=== PATIENT | female | born 1945 | race Caucasian/White ===

== ENCOUNTER 2016-06-22 15:20 | Inpatient (IN) | payer OTHER ==
[~2016-06-22] VITALS: Ht 162.6 cm; Wt 90.7 kg
[2016-06-22 15:42] VITALS: BP 159/79
[2016-06-22] MEDS ORDERED: METF500T2 PO (15:45)
--- NOTE | 2016-06-22 17:32 | NUR ---
PATIENT TAKEN TO BED #8
[2016-06-22] MEDS ORDERED: MORPHINE SULFATE 4 MG/ML SYR IVP ONE ×2 (17:45→20:50)
[2016-06-22] MEDS ORDERED: ONDANSETRON 4 MG/2 ML VIAL IVP ONE (17:45)
--- NOTE | 2016-06-22 18:00 | NUR ---
PATIENT PRESENTS TO ED C/O RIGHT SHOULDER TO ELBOW PAIN AND MOUTH PAIN FROM FALLING TODAY, PT DOES NOT REMEMBER FALLING; DENIES N/V/D; SKIN IS PINK/WARM/DRY; AAOX4 WITH EVEN AND STEADY GAIT; LUNGS CLEAR BL; HR EVEN AND REGULAR; PT DENIES ANY FEVER, CP, SOB, OR COUGH AT THIS TIME; PATIENT STATES PAIN OF 10/10 AT THIS TIME; VSS; PATIENT POSITIONED FOR COMFORT; HOB ELEVATED; BEDRAILS UP X2; BED DOWN. ER MD MADE AWARE OF PT STATUS.
[2016-06-22 18:13] LABS: HEMATOCRIT 38.2 % (36-48); HEMOGLOBIN 12.9 g/dL (12.0-16.0); MEAN CORPUSCULAR HEMOGLOBIN 27 pg (27-31); MEAN CORPUSCULAR HGB CONC 34 g/dL (33-37); MEAN CORPUSCULAR VOLUME 82 fL (80-94); PLATELET COUNT (AUTO) 291 K/uL (140-450); RED BLOOD CELL COUNT(AUTO) 4.68 MIL/uL (4.20-5.40); RED CELL DISTRIBUTION WIDTH 13.8 % (11.6-13.7); WHITE BLOOD COUNT (AUTO) 20.6 K/uL (4.8-10.8)
--- NOTE | 2016-06-22 18:21 | NUR ---
CORRECTION IV INSERTED ON LEFT HAND 22G
[2016-06-22 18:24] LABS: ANION GAP 9.5 (8-16); CALCIUM 9.1 mg/dL (8.5-10.1); CREATININE 0.9 mg/dL (0.6-1.3); POTASSIUM 3.5 mmol/L (3.5-5.1)
[2016-06-22 18:27] LABS: INR 1.2 (0.8-1.2); PARTIAL THROMBOPLASTIN TIME 23.4 secs (22-35.6); PROTHROMBIN TIME 11.1 secs (10.8-13.4)
[2016-06-22 18:29] LABS: BAND % (MANUAL) 8 % (0-8); LYMPHOCYTES % (MANUAL) 8 % (20-46); MONOCYTES % (MANUAL) 4 % (5-12); NEUTROPHILS % (MANUAL) 80 (43-65)
[2016-06-22 18:30] LABS: ALBUMIN 3.6 g/dL (3.4-5.0); PLATELET ESTIMATE ADEQUATE; TOTAL BILIRUBIN 0.4 mg/dL (0.0-1.0); TOTAL PROTEIN, SERUM 7.3 g/dL (6.4-8.2)
--- NOTE | 2016-06-22 19:30 | NUR ---
REPORT GIVEN TO EDGAR BENITEZ
[2016-06-22 19:52] LABS: LACTIC ACID 1.2 mmol/L (0.4-2.0)
[2016-06-22 20:09] LABS: APPEARANCE,URINE CLEAR (CLEAR); BILIRUBIN,URINE NEGATIVE (NEGATIVE); BLOOD, URINE TRACE-I (NEGATIVE); COLOR,URINE YELLOW (YELLOW); LEUKOCYTE ESTERASE ,URINE NEGATIVE (NEGATIVE); NITRITE, URINE NEGATIVE (NEGATIVE); PH,URINE 6.5 (5.0-9.0); PROTEIN,URINE 3+ (NEGATIVE); UGLUCOSE NEGATIVE (NEGATIVE); UROBILINOGEN,URINE 0.2 EU/dL (0.2 - 1)
[2016-06-22] MEDS ORDERED: LORazepam 2 MG/ML VIAL IVP PRN (20:15)
[2016-06-22] MEDS ORDERED: ONDANSETRON 4 MG/2 ML VIAL IVP PRN (20:15)
[2016-06-22] MEDS ORDERED: ACETAMINOPHEN 325 MG TAB PO PRN (20:15)
[2016-06-22 20:16] LABS: BACTERIA,URINE FEW /HPF (None Seen); MUCUS,URINE 4+ /LPF (None Seen); SQUAMOUS EPITHELIAL CELL,UR 0-3 /LPF (0-3 (FEW))
[2016-06-22] MEDS: HYDROCHLOROTHIAZIDE 25 MG TAB PO SCH (20:30)
--- NOTE | 2016-06-22 20:44 | NUR ---
Patient will be admitted to care of DR. KRUEGER. Admited to TELEMTRY. Will go to room 107A. Belongings list completed. Report to JERI HERNÁNDEZ.
--- NOTE | 2016-06-22 21:12 | NUR ---
RECEIVED FROM ER PER SHERIE AWAKE AND ALERT. DX. SP FALL VS SYNCOPE . A/O X 4. ROM X 4. VERBALIZES WELL. NO SOB. DENIES PAIN AT THIS TIME. ACCOMPANIED BY DAUGHTER/[place]. SPEAKS CITIZEN OF [place] ONLY. CALL LIGHT WITH IN REACH. CARE PLANS FOR THE NIGHT DISCUSSED WITH HER AND FAMILY. IVF SITE TO LEFT WRIST #22 INTACT AND NEW. GOOD BLOOD RETURN.
[2016-06-22 21:29] VITALS: BP 159/79
--- NOTE | 2016-06-22 22:21 | NUR ---
FAMILY MEMBERS TILL IN HERE AND ABLE TO SPEAK IN [place]. NO COMPLAINTS DONE. DAUGHTER REQUESTED TO STAY OVERNIGHT. NO COMPLAINTS OF PAIN DONE AT THIS TIME. CHARGE NURSE AND FLOOR NURSE INSPECTED SKIN. NOTED WITH BRUISE TO BILATERAL KNEES FROM S/P FALL INCIDENT AT HOME AND LOWER LEFT LIP BRUISE. RIGHT SHOULDER SLIGHTLY SWOLLEN. NO SOB. CALL LIGHT WITH IN REACH AND DAUGTHER STAYING OVER ORIENTED TO CALL LIGHT AND RAPID RESPONSE USE.
[2016-06-22] MEDS: MORPHINE SULFATE 2 MG/ML SYR IVP PRN (22:40)
[2016-06-22] MEDS: LISINOPRIL 10 MG TAB PO SCH (22:41)
--- NOTE | 2016-06-22 22:59 | NUR ---
PT. REQUESTED FOR PAIN RELIEVER RT RIGHT SHOULDER AND BILATERAL KNEE SUSTAINED FROM S/P FALL IS HURTING. MEDICATED WITH MORPHINE 2 MG IVP ORDERED. DAUGTHER AT BEDSIDE.
[2016-06-23 00:26] VITALS: BP 155/75
--- NOTE | 2016-06-23 00:47 | NUR ---
SLEEPING AT THI STIME. WOKE UP EASILY WHEN VITAL SIGNS TAKEN. ON FALL RISK. DAUGHTER AT BEDSIDE WATCHING OVER PT.
[2016-06-23] MEDS: MORPHINE SULFATE 2 MG/ML SYR IVP PRN ×3 (02:09→12:02)
--- NOTE | 2016-06-23 03:07 | NUR ---
PT. REQUESTED FOR MORPHINE IVP RT PAIN RIGHT SHOULDER. MEDICATED REDQUESTED. AWAKE AND ALERT. NO OTHER COMPLAINTS.
[2016-06-23 03:23] LABS: CREATINE KINASE MB 0.4 ng/mL (0-3.6)
[2016-06-23 04:46] VITALS: BP 152/70
--- NOTE | 2016-06-23 05:02 | NUR ---
AWAKE AT THIS TIME. WATCHING TV. NO COMPLAINTS AT THIS TIME. DAUGHTER WITH HER. PT. ABLE TO USE CALL LIGHT FOR HELP AND IF IN PAIN. TELEMETRY [id number]. A
[2016-06-23 07:00] LABS: HEMATOCRIT 34.7 % (36-48); HEMOGLOBIN 11.5 g/dL (12.0-16.0); MEAN CORPUSCULAR HEMOGLOBIN 27 pg (27-31); MEAN CORPUSCULAR HGB CONC 33 g/dL (33-37); MEAN CORPUSCULAR VOLUME 83 fL (80-94); PLATELET COUNT (AUTO) 282 K/uL (140-450); RED BLOOD CELL COUNT(AUTO) 4.18 MIL/uL (4.20-5.40); RED CELL DISTRIBUTION WIDTH 13.9 % (11.6-13.7); WHITE BLOOD COUNT (AUTO) 16.3 K/uL (4.8-10.8)
--- NOTE | 2016-06-23 07:14 | NUR ---
RECEIVED PT AWAKE AAOX4, WITH NO S/S OF RESPIRATORY DISTRESS. SKIN IS INTACT, WITH IV ACCESS AT LEFT HAND 22G ON SALINE LOCK PATENT AND INTACT. WITH SLING ON RIGHT ARM, COMPLAINED OF PAIN, WILL ADMINISTER PAIN MED. DISCUSSED PLAN OF CARE, INTERPRETED BY ROBBIE GARVIN AND DAUGHTER, PT VERBALIZED UNDERSTANDING. PT PLACED ON FALL PRECAUTION, CALL LIGHT WITHIN REACH, WILL CONTINUE TO MONITOR.
--- NOTE | 2016-06-23 07:15 | NUR ---
DR ORTIZ AT BEDSIDE
[2016-06-23 07:19] LABS: ANION GAP 8.4 (8-16); CALCIUM 8.5 mg/dL (8.5-10.1); CARBON DIOXIDE 32.3 mmol/L (21-32); CREATININE 0.9 mg/dL (0.6-1.3); POTASSIUM 3.7 mmol/L (3.5-5.1)
[2016-06-23 07:24] LABS: MAGNESIUM 1.7 mg/dL (1.8-2.4); PHOSPHORUS 4.4 mg/dL (2.5-4.9)
[2016-06-23 08:00] VITALS: BP 147/75
[2016-06-23] MEDS: HYDROCHLOROTHIAZIDE 25 MG TAB PO SCH (08:00)
--- NOTE | 2016-06-23 08:03 | NUR ---
DUE MEDS GIVEN, PT TOLERATED WELL. COMPLAINED OF PAIN, MORPHINE GIVEN IVP. WILL REASSESS
[2016-06-23] MEDS ORDERED: DEXTROSE 50% 50 ML SYR IVP PRN (08:15)
[2016-06-23] MEDS ORDERED: metFORMIN 500 MG TAB PO SCH (08:20)
[2016-06-23 08:27] LABS: BAND % (MANUAL) 5 % (0-8); LYMPHOCYTES % (MANUAL) 12 % (20-46); MONOCYTES % (MANUAL) 3 % (5-12); NEUTROPHILS % (MANUAL) 80 (43-65)
[2016-06-23] MEDS ORDERED: ATOR20TA PO (08:44)
[2016-06-23] MEDS ORDERED: PAX20 PO (08:44)
[2016-06-23] MEDS ORDERED: AMLO5TAB4 PO (08:44)
--- NOTE | 2016-06-23 08:49 | NUR ---
PT AMBULATING ALONG HALLWAYS WITH PHYSICAL THERAPISTS
--- NOTE | 2016-06-23 08:58 | NUR ---
PT SPO2 AFTER AMBULATING ST 88%. O2 APPLIED VIA NC AT 2LPM
[2016-06-23] MEDS ORDERED: METFORMIN HCL PO SCH (09:00)
--- NOTE | 2016-06-23 09:11 | NUR ---
PATIENT HAS BEEN SCREENED AND CATEGORIZED MODERATE NUTRITION RISK. PATIENT WILL BE SEEN WITHIN 3-5 DAYS OF ADMISSION. 06/25/16-06/27/[address]
--- NOTE | 2016-06-23 09:19 | NUR ---
PATOENT LEFT FOR CT ON A WHEELCHAIR. STABLE
--- NOTE | 2016-06-23 09:26 | NUR ---
PT BACK TO UNIT FROM CT
--- NOTE | 2016-06-23 11:10 | NUR ---
NOTIFIED DR Krishan KRUEGER RE: MAG LEVEL, WILL CARRY OUT NEW ORDERS
--- NOTE | 2016-06-23 11:19 | NUR ---
DR ORTIZ NOTIFIED OF CT RESULT, WILL COME TO SEE THE PATIENT
[2016-06-23] MEDS ORDERED: MAG SULF 2000 MG/WATER PREMIX 50 ML IV SCH ×2 (11:32→12:00)
[2016-06-23] MEDS: BLOOD GLUCOSE MONITORING 1 DEV DEV FS SCH ×3 (11:38→20:27)
[2016-06-23 11:40] LABS: CREATINE KINASE MB 0.6 ng/mL (0-3.6)
[2016-06-23] MEDS: INSULIN LISPRO SLIDING SCALE 100 UNITS/ML VIAL SUBQ PRN ×3 (11:57→20:27)
[2016-06-23 12:00] VITALS: BP 138/91
--- NOTE | 2016-06-23 13:10 | NUR ---
DR Manohar KRUEGER AT NURSES STATION
--- NOTE | 2016-06-23 15:05 | NUR ---
DR ORTIZ AT BEDSIDE, PT OK TO HAVE SURGERY. INFORMED CONSENT SIGNED AND AFFIXED IN CHART
[2016-06-23] MEDS: MORPHINE SULFATE 4 MG/ML SYR IVP PRN ×2 (15:17→22:51)
[2016-06-23 16:00] VITALS: BP 143/63
[2016-06-23] MEDS: metFORMIN 500 MG TAB PO SCH (17:04)
--- NOTE | 2016-06-23 17:15 | NUR ---
DUE MEDS GIVEN, PT TOLERATED WELL. WITH RELATIVES AT BEDSIDE. NO S/S OF DISTRESS, WILL CONTINUE TO MONITOR.
[2016-06-23] MEDS ORDERED: PIPER/TAZO 3.375GM/D5W PREMIX 50 ML IV SCH (18:00)
[2016-06-23] MEDS: HYDROcodone/APAP 5/325 MG 1 TAB TAB PO PRN (18:54)
--- NOTE | 2016-06-23 19:05 | NUR ---
RECEIVED REPORT FROM EDGAR GOSS AT BEDSIDE. INITIAL ASSESSMENT COMPLETED. PT AAOX4. PT AMBULATES. PT STABLE. PT HAS A SLING ON RIGHT ARM. PT HAS IV ON LEFT HAND 22 G SL. PT ON O2 2L NC. PT AWARE THAT SHE IS NPO AFTER MIDNIGHT. FAMILY AT BEDSIDE. ORIENTED PT TO ROOM AND SURROUNDINGS AND USE OF CALL LIGHT. EXPLAINED PLAN OF CARE TO PT AND SHE VERBALIZES UNDERSTANDING. WILL CONTINUE TO MONITOR PT.
--- NOTE | 2016-06-23 19:23 | NUR ---
ENDORSED PT TO EDGAR FLORES FOR CONTINUITY OF CARE IN STABLE CONDITION
[2016-06-23 20:00] VITALS: BP 149/65
[2016-06-23] MEDS: LISINOPRIL 10 MG TAB PO SCH (20:17)
--- NOTE | 2016-06-23 20:31 | NUR ---
PT TOLERATED 2100 MEDS WELL, WILL CONTINUE TO MONITOR PT. FAMILY AT BEDSIDE.
--- NOTE | 2016-06-23 21:50 | NUR ---
DR. ZAPATA IN TO SEE PT, WILL FOLLOW UP ON ORDERS.
[2016-06-23] MEDS ORDERED: cefTRIAXone 1,000 MG VIAL ONE (22:49)
--- NOTE | 2016-06-23 22:49 | NUR ---
PT COMPLAINING OF RIGHT SHOULDER PAIN 09/24. WILL MEDICATE ORDERED.
--- NOTE | 2016-06-23 23:00 | NUR ---
MEDICATION GIVEN ORDERED. WILL CONTINUE TO MONITOR PT.
[2016-06-24] VITALS (9 sets, daily range): BP systolic 116–146; BP diastolic 54–83
--- NOTE | 2016-06-24 01:05 | NUR ---
PT STABLE, PT SLEEPING AT THIS TIME. NO SIGNS OF DISTRESS NOTED. WILL CONTINUE TO MONITOR PT.
--- NOTE | 2016-06-24 03:43 | NUR ---
DISCONNECTED PT FROM IV SO SHE COULD AMBULATE TO THE RESTROOM. PT BACK IN BED NOW. NO SIGNS OF DISTRESS NOTED. WILL CONTINUE TO MONITOR PT.
[2016-06-24 05:40] LABS: BASOPHILS % (AUTO) 0.3 % (0.0-2.0); EOSINOPHILS # (AUTO) 0.2 K/uL (0-0.4); EOSINOPHILS % (AUTO) 1.3 % (0.0-4.0); HEMATOCRIT 33.4 % (36-48); HEMOGLOBIN 11.2 g/dL (12.0-16.0); LYMPHOCYTES # (AUTO) 2.6 K/uL (2.5-16.5); LYMPHOCYTES % (AUTO) 16.7 % (20.5-51.1); MEAN CORPUSCULAR HEMOGLOBIN 28 pg (27-31); MEAN CORPUSCULAR HGB CONC 34 g/dL (33-37); MEAN CORPUSCULAR VOLUME 82 fL (80-94); MONOCYTES % (AUTO) 6.5 % (1.7-9.3); NEUTROPHILS # (AUTO) 11.6 K/uL (1.8-7.7); NEUTROPHILS % (AUTO) 75.2 % (42.2-75.2); PLATELET COUNT (AUTO) 273 K/uL (140-450); RED BLOOD CELL COUNT(AUTO) 4.06 MIL/uL (4.20-5.40); RED CELL DISTRIBUTION WIDTH 14.1 % (11.6-13.7); WHITE BLOOD COUNT (AUTO) 15.5 K/uL (4.8-10.8)
--- NOTE | 2016-06-24 05:45 | NUR ---
PT COMPLAINING OF SHOULDER PAIN 09/24. VS STABLE, WILL CONTINUE TO MONITOR PT.
[2016-06-24] MEDS: MORPHINE SULFATE 4 MG/ML SYR IVP PRN ×2 (05:47→23:29)
[2016-06-24] MEDS: INSULIN LISPRO SLIDING SCALE 100 UNITS/ML VIAL SUBQ PRN ×2 (06:13→21:12)
[2016-06-24] MEDS: BLOOD GLUCOSE MONITORING 1 DEV DEV FS SCH ×4 (06:13→21:12)
[2016-06-24 06:18] LABS: ANION GAP 9.1 (8-16); CALCIUM 8.1 mg/dL (8.5-10.1); CARBON DIOXIDE 32.3 mmol/L (21-32); POTASSIUM 3.4 mmol/L (3.5-5.1)
--- NOTE | 2016-06-24 07:30 | NUR ---
RECEIVED REPORT FROM PM SHIFT RN AT BEDSIDE. PATIENT ALERT ORIENTED X 4, DENIES ANY PAIN
--- NOTE | 2016-06-24 07:39 | NUR ---
ENDORSED PLAN OF CARE TO DAY SHIFT NURSE. PT IN STABLE CONDITION.
[2016-06-24] MEDS: metFORMIN 500 MG TAB PO SCH ×2 (08:00→17:00)
[2016-06-24] MEDS: MAGNESIUM OXIDE 400 MG TAB PO SCH (09:00)
[2016-06-24] MEDS: amLODIPine 5 MG TAB PO SCH (09:00)
[2016-06-24] MEDS: PARoxetine 20 MG TAB PO SCH (09:00)
[2016-06-24] MEDS: HYDROCHLOROTHIAZIDE 25 MG TAB PO SCH (09:00)
[2016-06-24] MEDS: ATORVASTATIN 20 MG TAB PO SCH (09:00)
--- NOTE | 2016-06-24 10:00 | NUR ---
PT ACCIDENTALLY PULLED-OUT PRESENT IV, RE-STARTED NEW IV LINE LEFT WRIST G22.
[2016-06-24] MEDS ORDERED: BUPIVACAINE-MPF 0.5% 30 ML VIAL INJ ONE (11:13)
[2016-06-24] MEDS ORDERED: BACITRACIN 50000 UNITS/1 VIAL ONE (11:13)
--- NOTE | 2016-06-24 11:25 | NUR ---
PT WHEELED TO SURGERY BY 2 CADMIUM BURNER'S. PATIENT IN STABLE CONDITION, NO SIGNS OF DISTRESS NOTED. FAMILY ACCOMPANIED THE PATIENT TO OR WAITING AREA.
[2016-06-24] MEDS ORDERED: fentaNYL 0.05 MG/ML VIAL ONE (11:44)
[2016-06-24] MEDS ORDERED: LIDOCAINE 2% 100 MG/5 ML SYR IVP ONE (11:53)
[2016-06-24] MEDS ORDERED: DEXAMETHASONE 4 MG/ML VIAL ONE (11:53)
[2016-06-24] MEDS ORDERED: SEVOFLURANE 250 ML BTL INH ONE (11:53)
[2016-06-24] MEDS ORDERED: ePHEDrine 50 MG/ML VIAL ONE (11:53)
[2016-06-24] MEDS ORDERED: ONDANSETRON 4 MG/2 ML VIAL ONE (11:53)
[2016-06-24] MEDS ORDERED: PROPOFOL 200 MG/20 ML VIAL IV ONE (11:53)
[2016-06-24] MEDS ORDERED: ceFAZolin 1,000 MG VIAL ONE ×2 (12:19→15:07)
[2016-06-24] MEDS ORDERED: ONDANSETRON 4 MG/2 ML VIAL IVP PRN (12:35)
[2016-06-24] MEDS ORDERED: BLOOD GLUCOSE MONITORING 1 DEV DEV FS SCH (12:35)
[2016-06-24] MEDS: HYDROmorphone 1 MG/ML AMP IVP PRN ×8 (14:05→15:55)
[2016-06-24] MEDS ORDERED: HYDROmorphone PFS 2 MG/ML SYR ONE ×2 (15:26→16:27)
--- NOTE | 2016-06-24 17:30 | NUR ---
RECEIVED PATIENT FROM PACU, S/P RIGHT ORIF DRESSING DRY AND INTACT, VS STABLE. PATIENT SLEEPING BUT AROUSABLE.
--- NOTE | 2016-06-24 18:28 | NUR ---
PAGED DR. ORTIZ REGARDING ORDER FOR DIET. LEFT MESSAGE TO LAYA FROM ANSWERING SERVICE. AWAITING FOR CALL BACK.
--- NOTE | 2016-06-24 19:15 | NUR ---
RECEIVED REPORT FROM EDGAR GODINEZ AT BEDSIDE. INITIAL ASSESSMENT COMPLETED. PT AAOX4. PT STABLE. PT HAS DRESSING ON RIGHT SHOULDER DRY AND INTACT S/P ORIF. PT HAS A SLING ON RIGHT ARM. PT HAS IV ON LEFT HAND 22 G SL. PT ON O2 2L NC. FAMILY AT BEDSIDE. PT HAS A FIELDS CATHETER IN PLACE. ORIENTED PT TO ROOM AND SURROUNDINGS AND USE OF CALL LIGHT. EXPLAINED PLAN OF CARE TO PT AND SHE VERBALIZES UNDERSTANDING. WILL CONTINUE TO MONITOR PT.
--- NOTE | 2016-06-24 19:30 | NUR ---
SBAR REPORT GIVEN TO EDGAR FLORES. PATIENT IN STABLE CONDITION, NO DISTRESS, DENIES ANY PAIN AT THIS TIME.
--- NOTE | 2016-06-24 19:46 | NUR ---
TALKED TO DR. ORTIZ ABOUT PT'S DIET. DR. ORTIZ ORDERED REGULAR DIET. WILL FOLLOW UP ON ORDERS.
--- NOTE | 2016-06-24 19:50 | NUR ---
CALLED DR. ORTIZ TO NOTIFY THAT PT IS DIABETIC AND ASKED HIM IF HE WANTED TO CHANGED DIET. DR. ORTIZ ORDERED [facility] 60G DIET. WILL FOLLOW UP ON ORDERS.
--- NOTE | 2016-06-24 20:35 | NUR ---
/PT COMPLAINING OF RIGHT SHOULDER PAIN . VS STABLE, PT REQUESTING NORCO. WILL MEDICATE ORDERED.
[2016-06-24] MEDS: HYDROcodone/APAP 5/325 MG 1 TAB TAB PO PRN (20:37)
[2016-06-24] MEDS: LISINOPRIL 10 MG TAB PO SCH (20:37)
--- NOTE | 2016-06-24 21:02 | NUR ---
PT TOLERATED MEDS WELL. WILL CONTINUE TO MONITOR PT.
--- NOTE | 2016-06-24 21:39 | NUR ---
DR. ZAPATA IN TO SEE PT.
--- NOTE | 2016-06-24 23:25 | NUR ---
TRAPEZE APPLIED TO BED ORDERED. WILL CONTINUE TO MONITOR PT.
--- NOTE | 2016-06-24 23:26 | NUR ---
PT COMPLAINING OF RIGHT SHOULDER PAIN 09/24. VS STABLE, WILL MEDICATE ORDERED.
[2016-06-25] VITALS: BP 138/72
--- NOTE | 2016-06-25 00:46 | NUR ---
PT SLEEPING AT THIS TIME. NO SIGNS OF DISTRESS NOTED. BED ALARM ON.
--- NOTE | 2016-06-25 01:54 | NUR ---
ROUNDS MADE. PT REQUESTING DRINKING WATER. ALL NEEDS MET AT THIS TIME. WILL CONTINUE TO MONITOR PT.
[2016-06-25 04:00] VITALS: BP 131/73
--- NOTE | 2016-06-25 04:15 | NUR ---
PT SLEEPING COMFORTABLY IN BED. NO SIGNS OF DISTRESS NOTED. CALL LIGHT WITHIN REACH.
[2016-06-25] MEDS: BLOOD GLUCOSE MONITORING 1 DEV DEV FS SCH ×4 (06:25→20:51)
[2016-06-25] MEDS: INSULIN LISPRO SLIDING SCALE 100 UNITS/ML VIAL SUBQ PRN ×4 (06:26→22:06)
[2016-06-25 06:39] LABS: BASOPHILS % (AUTO) 0.2 % (0.0-2.0); EOSINOPHILS # (AUTO) 0.3 K/uL (0-0.4); EOSINOPHILS % (AUTO) 1.7 % (0.0-4.0); HEMATOCRIT 29.4 % (36-48); HEMOGLOBIN 9.4 g/dL (12.0-16.0); LYMPHOCYTES # (AUTO) 1.5 K/uL (2.5-16.5); LYMPHOCYTES % (AUTO) 9.1 % (20.5-51.1); MEAN CORPUSCULAR HEMOGLOBIN 27 pg (27-31); MEAN CORPUSCULAR HGB CONC 32 g/dL (33-37); MEAN CORPUSCULAR VOLUME 83 fL (80-94); MONOCYTES # (AUTO) 0.8 K/uL (0.8-1.0); MONOCYTES % (AUTO) 4.9 % (1.7-9.3); NEUTROPHILS # (AUTO) 14.4 K/uL (1.8-7.7); NEUTROPHILS % (AUTO) 84.1 % (42.2-75.2); PLATELET COUNT (AUTO) 271 K/uL (140-450); RED BLOOD CELL COUNT(AUTO) 3.54 MIL/uL (4.20-5.40); RED CELL DISTRIBUTION WIDTH 13.8 % (11.6-13.7)
--- NOTE | 2016-06-25 07:05 | NUR ---
ENDORSED PLAN OF CARE TO DAY SHIFT NURSE. PT IN STABLE CONDITION.
--- NOTE | 2016-06-25 07:06 | NUR ---
RECEIVED REPORT, ASSUMED CARE. PT AAOX4, FAMILY AT BEDSIDE. RESPIRATION EVEN AND UNLABORED. C/O PAIN TO S/P ORIF RIGHT SHOULDER. WILL MEDICATED. NO ACTIVE BLEEDING NOTED TO SURGICAL SITE. DRESSING IN PLACE, DRY AND CLEAN. WILL CONTINUE TO MONITOR FOR ANY CHANGES.
[2016-06-25 07:55] LABS: ANION GAP 8.6 (8-16); CALCIUM 7.7 mg/dL (8.5-10.1); CARBON DIOXIDE 30.9 mmol/L (21-32); CREATININE 1.1 mg/dL (0.6-1.3); POTASSIUM 3.5 mmol/L (3.5-5.1)
[2016-06-25 08:00] VITALS: BP 145/65
[2016-06-25] MEDS: ATORVASTATIN 20 MG TAB PO SCH (08:38)
[2016-06-25] MEDS: metFORMIN 500 MG TAB PO SCH ×2 (08:39→17:59)
[2016-06-25] MEDS: PARoxetine 20 MG TAB PO SCH (08:39)
[2016-06-25] MEDS: HYDROCHLOROTHIAZIDE 25 MG TAB PO SCH (08:39)
[2016-06-25] MEDS: MAGNESIUM OXIDE 400 MG TAB PO SCH (08:39)
[2016-06-25] MEDS: HYDROcodone/APAP 5/325 MG 1 TAB TAB PO PRN (08:39)
[2016-06-25] MEDS: amLODIPine 5 MG TAB PO SCH (08:40)
[2016-06-25] MEDS: MORPHINE SULFATE 4 MG/ML SYR IVP PRN ×3 (11:01→22:07)
[2016-06-25 12:00] VITALS: BP 118/61
[2016-06-25 16:00] VITALS: BP 103/76
--- NOTE | 2016-06-25 17:20 | NUR ---
URINE SPECIMEN COLLECTED AND SENT TO LAB.
--- NOTE | 2016-06-25 19:30 | NUR ---
PT AAOX4, VERBALLY RESPONSIVE. FAMILY AT BEDSIDE AT THIS TIME. NO C/O PAIN, NO RESPIRATORY DISTRESS. IN STABLE CONDITION. ENDORSED TO NEXT SHIFT FOR CONTINUITY OF CARE.
--- NOTE | 2016-06-25 19:30 | NUR ---
RECEIVED REPORT FROM DAY SHIFT NURSE. PT FAMILY AT BEDSIDE. PT AOX4, ABLE TO VERBALIZE NEEDS. PT SITTING AT CHAIR, ASSISTED PT TO BED, PT ABLE TO AMBULATE WITH ASSIST. PT NOW RESTING IN BED. PT ON 2L O2 NC. PT DENIES CP, SOB OR S/S OF ACUTE DISTRESS. PT C/O PAIN. SEE PAIN ASSESSMENT. WILL MEDICATE ORDERED. FIELDS CATH IN PLACE, DRAINING CLEAR YELLOW URINE. TRAPEZE IN PLACE. DIESEL ENGINE II PIPE FITTER IN PLACE. SCDS IN PLACE. IV ACCESS ASYMPTOMATIC, PATENT AND INTACT, SALINE LOCKED. DISCUSSED AND REVIEWED PLAN OF CARE WITH PT, PT VERBALIZES UNDERSTANDING. SAFETY MEASURES ENSURED. CALL LIGHT WITHIN REACH. WILL CONTINUE TO MONITOR.
[2016-06-25 20:00] VITALS: BP 131/55
[2016-06-25] MEDS: LISINOPRIL 10 MG TAB PO SCH (22:00)
--- NOTE | 2016-06-25 22:10 | NUR ---
PT FAMILY AT BEDSIDE. ADMINISTERED MEDICATIONS WITH EDUCATION, PT VERBALIZES UNDERSTANDING, PT TOLERATED WELL. IV ROCEPHIN INFUSING WELL. PT RESTING COMFORTABLY. ALL NEEDS MET. SAFETY MEASURES ENSURED. CALL LIGHT WITHIN REACH. WILL CONTINUE TO MONITOR.
[2016-06-26] VITALS (7 sets, daily range): BP systolic 108–133; BP diastolic 44–59
--- NOTE | 2016-06-26 01:00 | NUR ---
PT RESTING IN BED COMFORTABLY. CONDITION STABLE. ALL NEEDS MET. SAFETY MEASURES ENSURED. CALL LIGHT WITHIN REACH. WILL CONTINUE TO MONITOR.
--- NOTE | 2016-06-26 04:00 | NUR ---
PT RESTING IN BED. PT C/O PAIN. SEE PAIN ASSESSMENT. ADMINISTERED PAIN MEDICATION WITH EDUCATION. PT VERBALIZES UNDERSTANDING, PT TOLERATED WELL. SAFETY MEASURES ENSURED. WILL CONTINUE TO MONITOR.
[2016-06-26] MEDS: MORPHINE SULFATE 4 MG/ML SYR IVP PRN ×2 (04:35→14:22)
--- NOTE | 2016-06-26 06:00 | NUR ---
PT BLOOD GLUCOSE 150, NO INSULIN COVERAGE NEEDED. CONDITION STABLE. ALL NEEDS MET. SAFETY MEASURES ENSURED. CALL LIGHT WITHIN REACH. WILL CONTINUE TO MONITOR.
[2016-06-26 06:12] LABS: BASOPHILS # (AUTO) 0.2 K/uL (0.00-0.22); BASOPHILS % (AUTO) 1.6 % (0.0-2.0); EOSINOPHILS # (AUTO) 0.3 K/uL (0-0.4); EOSINOPHILS % (AUTO) 1.8 % (0.0-4.0); HEMATOCRIT 26.2 % (36-48); HEMOGLOBIN 8.8 g/dL (12.0-16.0); LYMPHOCYTES # (AUTO) 2.7 K/uL (2.5-16.5); LYMPHOCYTES % (AUTO) 19.3 % (20.5-51.1); MEAN CORPUSCULAR HEMOGLOBIN 28 pg (27-31); MEAN CORPUSCULAR HGB CONC 34 g/dL (33-37); MEAN CORPUSCULAR VOLUME 83 fL (80-94); MONOCYTES # (AUTO) 0.9 K/uL (0.8-1.0); MONOCYTES % (AUTO) 6.8 % (1.7-9.3); NEUTROPHILS # (AUTO) 9.8 K/uL (1.8-7.7); NEUTROPHILS % (AUTO) 70.5 % (42.2-75.2); PLATELET COUNT (AUTO) 276 K/uL (140-450); RED BLOOD CELL COUNT(AUTO) 3.16 MIL/uL (4.20-5.40); RED CELL DISTRIBUTION WIDTH 14.2 % (11.6-13.7); WHITE BLOOD COUNT (AUTO) 13.9 K/uL (4.8-10.8)
[2016-06-26 06:39] LABS: ANION GAP 8.6 (8-16); CALCIUM 7.9 mg/dL (8.5-10.1); POTASSIUM 3.6 mmol/L (3.5-5.1)
[2016-06-26] MEDS: metFORMIN 500 MG TAB PO SCH ×2 (07:02→17:02)
[2016-06-26] MEDS: BLOOD GLUCOSE MONITORING 1 DEV DEV FS SCH ×4 (07:02→20:52)
--- NOTE | 2016-06-26 07:22 | NUR ---
RECEIVED PT ASLEEP BUT EASILY AROUSABLE, AAOX4, [place] SPEAKING, WITH IV ACCESS AT LEFT HAND 22G ON SALINE LOCK PATENT AND INTACT. WITH RIGHT ARM SLING, S/P ORIF ON RIGHT SHOULDER, WITH DRESSING DRY AND INTACT. WITH O2 AT 2LPM NC NO S/S OF RESPIRATORY DISTRESS. CALL LIGHT WITHIN REACH, WILL CONTINUE TO MONITOR
--- NOTE | 2016-06-26 07:57 | NUR ---
ENDORSED PLAN OF CARE TO DAY SHIFT NURSE. CONDITION STABLE.
--- NOTE | 2016-06-26 08:50 | NUR ---
PT AMBULATING THE HALLWAYS WITH PHYSICAL THERAPIST. TOLERATING WELL
[2016-06-26] MEDS: ATORVASTATIN 20 MG TAB PO SCH (09:17)
[2016-06-26] MEDS: HYDROCHLOROTHIAZIDE 25 MG TAB PO SCH (09:17)
[2016-06-26] MEDS: amLODIPine 5 MG TAB PO SCH (09:18)
[2016-06-26] MEDS: MAGNESIUM OXIDE 400 MG TAB PO SCH (09:18)
[2016-06-26] MEDS: PARoxetine 20 MG TAB PO SCH (09:18)
--- NOTE | 2016-06-26 09:24 | NUR ---
DUE MEDS GIVEN, PT TOLERATED WELL. SITTING ON CHAIR TOGETHER WITH RELATIVE, WILL CONTINUE TO MONITOR
--- NOTE | 2016-06-26 10:36 | NUR ---
RECEIVED PT ASLEEP BUT EASILY AROUSABLE, AAOX4, [place] SPEAKING, WITH IV ACCESS AT LEFT HAND 22G ON SALINE LOCK PATENT AND INTACT. WITH RIGHT ARM SLING, S/P ORIF ON RIGHT SHOULDER, WITH DRESSING DRY AND INTACT. WITH O2 AT 2LPM NC NO S/S OF RESPIRATORY DISTRESS. CALL LIGHT WITHIN REACH, WILL CONTINUE TO MONITOR. Addendum: 06/26/16 at 1038 by Ghislaine Griffiths RN RECEIVED PT AT 0722
[2016-06-26] MEDS: INSULIN LISPRO SLIDING SCALE 100 UNITS/ML VIAL SUBQ PRN ×3 (11:57→20:53)
--- NOTE | 2016-06-26 11:58 | NUR ---
06/26/16 RD INITIAL ASSESSMENT COMPLETED PLEASE REFER TO NUTRITION ASSESSMENT UNDER CARE ACTIVITY FOR ESTIMATED NUTRITIONAL NEEDS. RD RECOMMENDATIONS: 1. CONTINUE ON CCHO 60 GM DIET TOLERATED. --NOTE PT MEETING 75% OF ESTIMATED CALORIC NEEDS AND 100% ESTIMATED PROTEIN NEEDS. 2. RD WILL F/U 5-7 DAYS; LOW RISK. [place], RD
--- NOTE | 2016-06-26 12:30 | NUR ---
PT AWAKE SITTING ON CHAIR,WITH RELATIVES AT BEDSIDE. NO SIGNS OF DISTRESS, WILL CONTINUE TO MONITOR.
--- NOTE | 2016-06-26 13:20 | NUR ---
SPOKE TO DR ORTIZ, GAVE ORDERS TO DISCONTINUE FIELDS CATHETER. FC REMOVED.
--- NOTE | 2016-06-26 15:21 | NUR ---
DR ORTIZ AT BEDSIDE, INFORMED RE: PT SPO2 AT 88% WITHOUT OXYGEN, NO NEW ORDERS
--- NOTE | 2016-06-26 15:25 | NUR ---
PT AWAKE AND LYING ON BED, WITH RELATIVES AT BEDSIDE. CALL LIGHT WITHIN REACH,WILL CONTINUE TO MONITOR
--- NOTE | 2016-06-26 17:25 | NUR ---
PT AWAKE, WATCHING TV. NO SIGN OF DISTRESS. ALL NEEDS ATTENDED
--- NOTE | 2016-06-26 19:14 | NUR ---
PT AWAKE SITTING ON BED WITH RELATIVES. NO SIGNS OF DISTRESS, WILL CONTINUE TO MONITOR
--- NOTE | 2016-06-26 19:14 | NUR ---
ENDORSED PT TO EDGAR BENITEZ FOR CONTINUITY OF CARE IN STABLE CONDITION
--- NOTE | 2016-06-26 19:30 | NUR ---
RECEIVED REPORT FROM ANA PAULA HERNÁNDEZ AT [facility]. PT IS ALERT AWAKE ORIENTED X4. CITIZEN OF [place]SPEAK[place] ONLY. INITIAL ASSESSMENT DONE. NO S/S OF RESPIRATORY DISTRESS OR SOB NOTED. NO C/O PAIN OR ANY DISCOMFORT AT THIS TIME. PLAN OF CARE REVIEWED TO PT AND FAMILY AT BEDSIDE AND VERBALIZED UNDERSTANDING. CALL LIGHT WITHIN REACH. WILL CONTINUE TO MONITOR.
[2016-06-26] MEDS: LISINOPRIL 10 MG TAB PO SCH (20:52)
[2016-06-26] MEDS: HYDROcodone/APAP 5/325 MG 1 TAB TAB PO PRN (23:55)
[2016-06-27] VITALS: BP 126/45
--- NOTE | 2016-06-27 00:40 | NUR ---
PT IS SLEEPING RIGHT NOW BUT EASILY AROUSABLE. NO S/S OF ANY DISCOMFORT AT THIS TIME. ALL NEEDS ARE ATTENDED. CALL LIGHT WITHIN REACH. WILL CONTINUE TO MONITOR.
[2016-06-27] MEDS: MORPHINE SULFATE 4 MG/ML SYR IVP PRN (01:46)
[2016-06-27 04:00] VITALS: BP 123/46
--- NOTE | 2016-06-27 05:20 | NUR ---
AM CARE RENDERED. BED LINEN CHANGED. INSTRUCTED PT TO REPOSITION. KEPT CLEAN AND DRY. CALL LIGHT WITHIN REACH. WILL CONTINUE TO MONITOR.
[2016-06-27 06:11] LABS: BASOPHILS # (AUTO) 0.1 K/uL (0.00-0.22); BASOPHILS % (AUTO) 0.9 % (0.0-2.0); EOSINOPHILS # (AUTO) 0.3 K/uL (0-0.4); HEMATOCRIT 26.3 % (36-48); HEMOGLOBIN 8.6 g/dL (12.0-16.0); LYMPHOCYTES # (AUTO) 2.8 K/uL (2.5-16.5); LYMPHOCYTES % (AUTO) 20.6 % (20.5-51.1); MEAN CORPUSCULAR HEMOGLOBIN 27 pg (27-31); MEAN CORPUSCULAR HGB CONC 33 g/dL (33-37); MEAN CORPUSCULAR VOLUME 83 fL (80-94); MONOCYTES # (AUTO) 0.8 K/uL (0.8-1.0); MONOCYTES % (AUTO) 6.1 % (1.7-9.3); NEUTROPHILS # (AUTO) 9.4 K/uL (1.8-7.7); NEUTROPHILS % (AUTO) 70.4 % (42.2-75.2); PLATELET COUNT (AUTO) 317 K/uL (140-450); RED BLOOD CELL COUNT(AUTO) 3.15 MIL/uL (4.20-5.40); RED CELL DISTRIBUTION WIDTH 13.7 % (11.6-13.7); WHITE BLOOD COUNT (AUTO) 13.4 K/uL (4.8-10.8)
[2016-06-27] MEDS: BLOOD GLUCOSE MONITORING 1 DEV DEV FS SCH ×2 (06:32→12:03)
[2016-06-27] MEDS: INSULIN LISPRO SLIDING SCALE 100 UNITS/ML VIAL SUBQ PRN ×2 (06:34→12:05)
[2016-06-27 06:36] LABS: ANION GAP 7.6 (8-16); CALCIUM 8.3 mg/dL (8.5-10.1); CARBON DIOXIDE 32.9 mmol/L (21-32); POTASSIUM 3.5 mmol/L (3.5-5.1)
--- NOTE | 2016-06-27 07:20 | NUR ---
RECEIVED PT ASLEEP BUT EASILY AROUSABLE, AAOX4 [place] SPEAKING, WITH IV ACCESS AT LEFT HAND 22G INFUSING FLUIDS WELL. WITH SURGICAL INCISION AT RIGHT SHOULDER S/P ORIF CLOSED WITH 15 SURGICAL MIKEY OPEN TO AIR, NO DRAINAGE NOTED. NO COMPLAINTS OF PAIN AT THIS TIME. WITH RIGHT ARM SLING. DISCUSSED PLAN OF CARE, PT VERBALIZED UNDERSTANDING. SAFETY PRECAUTIONS ENFORCED. CALL LIGHT WITHIN REACH, WILL CONTINUE TO MONITOR. Addendum: 06/27/16 at 0744 by Ghislaine Griffiths RN IV ACCESS AT LEFT HAND 22G ON SALINE LOCK PATENT AND INTACT
--- NOTE | 2016-06-27 07:25 | NUR ---
PT HAS NO S/S OF ANY DISCOMFORT. PLAN OF CARE ENDORSED TO AM SHIFT NURSE FOR CONTINUITY OF CARE.
--- NOTE | 2016-06-27 07:34 | NUR ---
VS TAKEN, STABLE. SPO2 AT 91% ON ROOM AIR
[2016-06-27 08:00] VITALS: BP 121/48
[2016-06-27] MEDS: HYDROCHLOROTHIAZIDE 25 MG TAB PO SCH (08:49)
[2016-06-27] MEDS: MAGNESIUM OXIDE 400 MG TAB PO SCH (08:49)
[2016-06-27] MEDS: PARoxetine 20 MG TAB PO SCH (08:49)
[2016-06-27] MEDS: ATORVASTATIN 20 MG TAB PO SCH (08:49)
[2016-06-27] MEDS: metFORMIN 500 MG TAB PO SCH (08:50)
[2016-06-27] MEDS: amLODIPine 5 MG TAB PO SCH (08:50)
--- NOTE | 2016-06-27 08:55 | NUR ---
DUE MEDS GIVEN, PT TOLERATED WELL. WILL CONTINUE TO MONITOR
--- NOTE | 2016-06-27 10:17 | NUR ---
PT AWAKE LYING ON BED WITH FAMILY AT BEDSIDE. NO SIGNS OF ACUTE DISTRESS, WILL CONTINUE TO MONITOR
--- NOTE | 2016-06-27 11:01 | NUR ---
PT AWAKE WITH RELATIVES AT BEDSIDE. NO SIGNS OF DISTRESS
[2016-06-27 12:00] VITALS: BP 135/60
--- NOTE | 2016-06-27 13:58 | NUR ---
DR Krishan KRUEGER AT NURSES' STATION
--- NOTE | 2016-06-27 15:21 | NUR ---
PT WAITING FOR DR KRUEGER, INFORMED WILL BE HERE WITHIN AN HOUR
[2016-06-27 16:00] VITALS: BP 128/56
[2016-06-27] MEDS ORDERED: ACET-1182 PO (16:27)
[2016-06-27] MEDS ORDERED: ORE25 PO (16:27)
[2016-06-27] MEDS ORDERED: MAG400 PO (16:27)
[2016-06-27] MEDS ORDERED: LISI10TA11 PO (16:27)
[2016-06-27] MEDS ORDERED: ACET-9525 PO (16:27)
--- NOTE | 2016-06-27 17:10 | NUR ---
DISCHARGE INSTRUCTIONS AND PRESCRIPTIONS GIVEN, TRANSLATED BY RELATIVE, PT VERBALIZED UNDERSTANDING. ID WRISTBAND, TELE MONITOR AND IV ACCESS REMOVED, CATHETER TIP INTACT. PHOTOS OF WOUND TAKEN AND AFFIXED IN CHART. PT WHEELED OUT OF UNIT ACCOMPANIED BY RELATIVES IN STABLE CONDITION
== END 2016-06-27 17:10 | disposition home or self-care (01) | DRG 483 ==
LOC: MED 15:20 → MTU 20:23
PROVIDERS: ADMIT Preventive Medicine Preventive Medicine/Occupational Environmental Medicine; ATTEND Preventive Medicine Preventive Medicine/Occupational Environmental Medicine
PROC: 0RRJ0J6 Replacement of Right Shoulder Joint with Synthetic Substitute, Humeral Surface, Open Approach (ICD-10-PCS; principal; 2016-06-25)
PROC: 0PBF0ZZ Excision of Right Humeral Shaft, Open Approach (ICD-10-PCS; 2016-06-25)
PROC: 0PUC07Z Supplement Right Humeral Head with Autologous Tissue Substitute, Open Approach (ICD-10-PCS; 2016-06-25)
DX: S42.251A Displaced fracture of greater tuberosity of right humerus, initial encounter for closed fracture (principal); I10 Essential (primary) hypertension; M81.0 Age-related osteoporosis without current pathological fracture; D64.9 Anemia, unspecified; D72.829 Elevated white blood cell count, unspecified; E11.65 Type 2 diabetes mellitus with hyperglycemia; I49.9 Cardiac arrhythmia, unspecified; W01.0XXA Fall on same level from slipping, tripping and stumbling without subsequent striking against object, initial encounter; S00.511A Abrasion of lip, initial encounter; E66.9 Obesity, unspecified; S80.02XA Contusion of left knee, initial encounter; S80.01XA Contusion of right knee, initial encounter; E83.52 Hypercalcemia; Y93.89 Activity, other specified; Y92.89 Other specified places as the place of occurrence of the external cause; Y99.8 Other external cause status; Z79.899 Other long term (current) drug therapy; Z68.34 Body mass index [BMI] 34.0-34.9, adult
CPT/HCPCS: 36415; 70450; 71010; 73030; 73060; 73200; 80048; 80053; 81001; 82550; 82553; 82948; 83605; 83735; 84100; 84484; 85025; 85610; 85651; 85730; 86140; 86886; 86900; 86901; 87040; 87081; 87086; 93005; 93880; 96374; 96375; 96376; 97110; 97116; 97530; 99291; C1713; C1776; J0690; J0696; J1100; J1170; J1644; J1815; J2001; J2270; J2405; J2543; J2704; J3010; J3475; J3490; J7030; J7060; J7120; Q0092